=== PATIENT | male | born 1985 | race African-American/Black ===

== ENCOUNTER 2019-06-19 03:32 | Emergency (ER) | payer OTHER, SELFPAY ==
--- NOTE | 2019-06-30 16:19 | EKG ---
Test Reason : Blood Pressure : / mmHG Vent. Rate : 071 BPM Atrial Rate : 071 BPM P-R Int : 148 ms QRS Dur : 082 ms QT Int : 338 ms P-R-T Axes : 038 053 049 degrees QTc Int : 367 ms Normal sinus rhythm Nonspecific ST and T wave abnormality No STEMI Abnormal ECG Confirmed by SURESH HERRERA M.D. ([id number]), publication editor ROMY JARA ([id number]) on 06/30/2019 4:19:23 PM Referred By: Confirmed By:SURESH HERRERA M.D.
== END 2019-06-19 04:16 | disposition home or self-care (01) ==
LOC: ERS 03:32
DX: S46.912A Strain of unspecified muscle, fascia and tendon at shoulder and upper arm level, left arm, initial encounter (principal); Z79.899 Other long term (current) drug therapy; X58.XXXA Exposure to other specified factors, initial encounter
CPT/HCPCS: 93005